=== PATIENT | female | born 1980 | race Caucasian/White ===

== ENCOUNTER 2018-04-20 17:25 | Emergency (ER) | payer OTHER ==
--- NOTE | 2018-04-20 21:23 | ED ---
Throat Pain/Nasal Congestion - HPI Summary HPI Summary: This patient is a 37 year old F presenting to [facility] with a chief complaint of throat pain with hoarse voice since one week ago. The patient rates the pain 8/ 10 in severity. Patient reports dizziness when changing position, productive cough, difficulty breathing, feeling more emotional, COLEMAN, and body aches. The patient is concerned about a previous fall in early November where she fell 30 feet onto her head. She has seen a neurologist but refused neck surgery. She would like an STD test because of her throat symptoms. She has not taken any OTC drugs to treat her symptoms because everyone says Im doing something wrong. JAN lives in [place], current smoker. - History of Current Complaint Chief Complaint: EDFluSymptoms Hx Obtained From: Patient Onset/Duration: Gradual Onset, Lasting Weeks - 1 Cough: Productive PMH/Surg Hx/FS Hx/Imm Hx History: Denies: Hx Dialysis Sensory History: Denies: Hx Deafness Infectious Disease History: No Infectious Disease History: Denies: Traveled Outside the [place] in Last 30 Days - Family History Known Family History: Positive: Non-Contributory - Social History Occupation: Employed Full-time Hx Tobacco Use: Yes Smoking Status (MU): Current Every Day Smoker Review of Systems Positive: Sore Throat Positive: Shortness Of Breath, Cough Positive: Myalgia Neurological: Other - dizziness Positive: Headache Psychological: Other - "more emotional" All Other Systems Reviewed And Are Negative: Yes Physical Exam - Summary Physical Exam Summary: Appearance: Well-appearing, Well-nourished, lying in bed comfortably Skin: Warm, dry, no obvious rash Eyes: sclera anicteric, no conjunctival pallor ENT: mucous membranes moist, pharynx appears normal. Hoarse voice. Neck: Supple, nontender Respiratory: Clear to auscultation, no signs of respiratory distress. Mild hoarseness noted, no "hot potato voice", no stridor. Cardiovascular: Normal S1, S2. No murmurs. Normal distal pulses in tibial and radial bilaterally. Abdomen: Soft, nontender, normal active bowel sounds present Musculoskeletal: Normal, Strength/ROM Intact Neurological: A&Ox3, awake and alert, mentation is normal, speech is fluent and appropriate Psychiatric: affect is normal, does not appear anxious or depressed Triage Information Reviewed: Yes Vital Signs On Initial Exam: Initial Vitals Temp Pulse Resp BP Pulse Ox 97.6 F 112 20 179/97 98 04/20/18 17:31 04/20/18 17:31 04/20/18 17:31 04/20/18 17:31 04/20/18 17:31 Vital Signs Reviewed: Yes Diagnostics - Vital Signs Vital Signs Temp Pulse Resp BP Pulse Ox 04/20/18 19:45 97.0 F 108 16 184/103 99 04/20/18 17:31 97.6 F 112 20 179/97 98 - Laboratory Lab Results: Lab Results 04/20/18 04/20/18 Range/Units 18:05 18:09 Influenza A (Rapid) Negative (Negative) Influenza B (Rapid) Negative (Negative) Group A Strep Rapid Negative (Negative) Lab Statement: Any lab studies that have been ordered have been reviewed, and results considered in the medical decision making process. EENT Course/Dx - Course Course Of Treatment: This patient is a 37 year old F presenting to [facility] with a chief complaint of throat pain with hoarse voice since one week ago. The patient rates the pain 8/10 in severity. Patient reports dizziness when changing position, productive cough, difficulty breathing, feeling more emotional, COLEMAN, and body aches. Test results with no significant abnormalities. Patient will be discharged with follow up from Dr. Masterson. The patient is agreeable with this plan. - Differential Diagnoses Differential Diagnoses: Laryngitis - Diagnoses Provider Diagnoses: Laryngitis Discharge - Sign-Out/Discharge Documenting (check all that apply): Patient Departure - discharge - Discharge Plan Condition: Stable Disposition: HOME Patient Education Materials: Laryngitis (ED) Forms: *Work Release Referrals: Garima Mcdowell RN [Primary Care Provider] - 5 Days (if not improving) - Billing Disposition and Condition Condition: STABLE Disposition: Home - Attestation Statements Document Initiated by Raymundoibe: Yes Documenting Scribe: Cosmo Schultz Provider For Whom Caleb is Documenting (Include Credential): Mauri Woodard MD Scribe Attestation: Cosmo Virk, raymundoibed for Mauri Woodard MD on 04/21/18 at 0444. Scribe Documentation Reviewed: Yes Provider Attestation: The documentation as recorded by the Cosmo kc accurately reflects the service I personally performed and the decisions made by me, Mauri Woodard MD Status of Scribe Document: Viewed
[2018-04-20 21:30] VITALS: BP 149/97
== END 2018-04-20 21:26 | disposition home or self-care (01) ==
LOC: ED 17:25
DX: J04.0 Acute laryngitis (principal); F17.200 Nicotine dependence, unspecified, uncomplicated
CPT/HCPCS: 87651; 99282